=== PATIENT | male | born 1965 | race American Indian/Alaskan Native ===

== ENCOUNTER 2017-06-26 00:52 | Emergency (ER) | payer BC, OTHER ==
[2017-06-26 01:26] VITALS: BP 196/124
[2017-06-26] MEDS ORDERED: CATAPRES PO ONE (01:45)
[2017-06-26 02:15] LABS: Basophils % (Auto) 0.3 % (0.0-1.8); Eosinophils % (Auto) 1.7 % (0.0-4.3); Hematocrit 41.6 % (35.5-45.6); Mean Corpuscular HGB Conc 34 % (32-34); Mean Corpuscular Hemoglobin 29 pg (28-32); Mean Corpuscular Volume 87 fl (84-94); Platelet Count 234 K/mm3 (140-440); Red Cell Distribution Width 13.4 % (13.2-15.2)
[2017-06-26 02:35] LABS: Anion Gap 17 mmol/L; BUN/Creatinine Ratio 13.33; Blood Urea Nitrogen 16 mg/dL (9-20); Calcium 8.9 mg/dL (8.4-10.2); Carbon Dioxide 24 mmol/L (22-30); Chloride 100.8 mmol/L (98-107); Creatine Kinase 285 units/L (55-170); Glucose 125 mg/dL (75-100); Potassium 3.7 mmol/L (3.6-5.0); Sodium 138 mmol/L (137-145)
== END 2017-06-26 03:51 | disposition left against medical advice (07) ==
LOC: ED 00:52
DX: I10 Essential (primary) hypertension (principal); Z53.21 Procedure and treatment not carried out due to patient leaving prior to being seen by health care provider
CPT/HCPCS: 36415; 80048; 82550; 84484; 85025; 93005; 93010

== ENCOUNTER 2019-01-18 07:19 | Emergency (ER) | payer BC, OTHER ==
[2019-01-18] MEDS ORDERED: TORADOL IM ONE (08:47)
[2019-01-18] MEDS ORDERED: CATAPRES PO ONE (08:47)
--- NOTE | 2019-01-18 08:50 | Emergency Department Report ---
ED Back Pain/Injury HPI - General Chief Complaint: Back Pain/Injury Stated Complaint: BACK INJURY Time Seen by Provider: 01/18/19 08:46 Source: patient Limitations: No Limitations - History of Present Illness Initial Comments: Patient is a 53-year-old -[place] male who comes to the ER with low back pain after lifting dog food onto pallets at work. He is ambulatory without signs and symptoms of cauda equina. He's had no incontinence. His blood pressure is elevated on admission but states that he does not have high blood pressure although his medical record indicates that he does. He states that he is not taking any home medicines. No fever. no headache. no chest pain. MD Complaint: back pain -: Sudden Similar Symptoms Previously: Yes Place: home Worsens With: movement Context: while lifting - Related Data Previous Rx's Medication Instructions Recorded Last Taken Type Cyclobenzaprine [Flexeril] 10 mg PO TID PRN #10 tablet 01/18/19 Unknown Rx Ibuprofen [Motrin] 800 mg PO Q8HR PRN #25 tablet 01/18/19 Unknown Rx hydrALAZINE [Apresoline TAB] 25 mg PO Q8HR #90 tab 01/18/19 Unknown Rx predniSONE [Deltasone] 20 mg PO DAILY #5 tablet 01/18/19 Unknown Rx Allergies Allergy/AdvReac Type Severity Reaction Status Date / Time No Known Allergies Allergy Verified 01/18/19 07:24 ED Review of Systems ROS: Stated complaint: BACK INJURY Other details as noted in HPI Comment: All other systems reviewed and negative ED Past Medical Hx - Past Medical History Medical history: hypertension ED Back Pain Physical Exam - Exam General: Vital signs noted. No distress. Alert and acting appropriately. 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 Vital Signs 01/18/19 07:25 Temperature 97.8 F Pulse Rate 74 Respiratory 18 Rate Blood Pressure 220/107 O2 Sat by Pulse 99 Oximetry Critical care attestation.: If time is entered above; I have spent that time in minutes in the direct care of this critically ill patient, excluding procedure time. ED Disposition Clinical Impression: Elevated blood pressure reading, Lumbar pain, Musculoskeletal back pain Disposition: DC-01 TO HOME OR SELFCARE Is pt being admited?: No Does the pt Need Aspirin: No Condition: Stable Instructions: Heart Healthy Diet (ED), Low Back Strain (ED), DASH Eating Plan (ED) Additional Instructions: ACTIVITY TOLERATED GOOD BODY MECHANICS WARM COMPRESSES LOW SALT DIET NO FRIED OR FAST FOOD MONITOR BLOOD PRESSURE YOU WILL NEED PCP FOLLOW UP REFERRAL BELOW MEDS ORDERED TODAY Prescriptions: hydrALAZINE [Apresoline TAB] 25 mg PO Q8HR #90 tab predniSONE [Deltasone] 20 mg PO DAILY #5 tablet Cyclobenzaprine [Flexeril] 10 mg PO TID PRN #10 tablet PRN Reason: Muscle Spasm Ibuprofen [Motrin] 800 mg PO Q8HR PRN #25 tablet PRN Reason: Pain , Severe (7-10) Referrals: [facility] [Outside] - 3-5 Days Time of Disposition: 08:52
[2019-01-18 09:43] VITALS: BP 181/104
== END 2019-01-18 09:31 | disposition home or self-care (01) ==
LOC: ED 07:19
DX: M54.5 Low back pain (principal); R03.0 Elevated blood-pressure reading, without diagnosis of hypertension; M79.18 Myalgia, other site
CPT/HCPCS: 96372; 99282; J1885